=== PATIENT | male | born 1990 | race Hispanic/Latino ===

== ENCOUNTER 2019-03-07 09:02 | Emergency (ER) | payer OTHER ==
[2019-03-07 09:16] VITALS: BP 158/93
[2019-03-07] MEDS ORDERED: ASPIRIN PO ONE (09:16)
[2019-03-07 09:32] LABS: Basophils # (Auto) 0.1 K/mm3 (0.0-0.1); Basophils % (Auto) 0.7 % (0.0-1.8); Eosinophils % (Auto) 0.2 % (0.0-4.3); Hematocrit 45.1 % (35.5-45.6); Hemoglobin 14.9 gm/dl (11.8-15.2); Lymphocytes # (Auto) 3.9 K/mm3 (1.2-5.4); Lymphocytes % (Auto) 33.1 % (13.4-35.0); Mean Corpuscular HGB Conc 33 % (32-34); Mean Corpuscular Volume 85 fl (84-94); Monocytes # (Auto) 0.8 K/mm3 (0.0-0.8); Monocytes % (Auto) 6.8 % (0.0-7.3); Platelet Count 324 K/mm3 (140-440); Red Blood Count 5.32 M/mm3 (3.65-5.03); Red Cell Distribution Width 14.8 % (13.2-15.2)
[2019-03-07] MEDS ORDERED: ZOFRAN IV ONE (09:42)
[2019-03-07] MEDS ORDERED: PEPCID IV ONE (09:42)
[2019-03-07] MEDS ORDERED: NACL 0.9% 1000 ML 1,000 ML IV ONE (09:42)
[2019-03-07 09:53] LABS: BUN/Creatinine Ratio 13; Blood Urea Nitrogen 10 mg/dL (9-20); Calcium 9.5 mg/dL (8.4-10.2); Hemolysis Index 3
[2019-03-07] MEDS ORDERED: ALUM-MAG HYDROX-SIMETH 200-200-20MG/5ML PO ONE (11:01)
[2019-03-07] MEDS ORDERED: LEVSIN SL SL ONE (11:01)
[2019-03-07] MEDS ORDERED: MORPHINE IV ONE (11:01)
[2019-03-07] MEDS ORDERED: PROTONIX IV ONE (11:01)
--- NOTE | 2019-03-07 12:25 | Emergency Department Report ---
ED Abdominal Pain HPI - General Chief Complaint: Chest Pain Stated Complaint: CHEST PAIN/NAUSEA Time Seen by Provider: 03/07/19 09:38 Source: patient Mode of arrival: Ambulatory Limitations: No Limitations - History of Present Illness Initial Comments: Patient is a 29-year-old gentleman who [place] town and states he has no medications for his gait gastritis. Patient states that [id number] medications that typically do not work. Patient states he has been having epigastric pain with nausea and vomiting for the last week. He denies fevers chills cough cold congestion sore throat. Patient states symptoms are similar to symptoms he is having the past. Patient also has had some mild diarrhea. Location: epigastric Radiation: none Severity: moderate Severity scale (0 -10): 6 Quality: burning Improves With: nothing Worsens With: eating - Related Data Previous Rx's Medication Instructions Recorded Last Taken Type Ondansetron [Zofran Odt] 4 mg PO Q8HR #10 tab.rapdis 03/07/19 Unknown Rx Pantoprazole [Protonix] 40 mg PO QDAY #30 tablet 03/07/19 Unknown Rx traMADol [Ultram] 50 mg PO Q6HR PRN #6 tablet 03/07/19 Unknown Rx Allergies Allergy/AdvReac Type Severity Reaction Status Date / Time No Known Allergies Allergy Verified 03/07/19 09:41 ED Review of Systems ROS: Stated complaint: CHEST PAIN/NAUSEA Other details as noted in HPI Comment: All other systems reviewed and negative ED Past Medical Hx - Past Medical History Additional medical history: GASTRITIS - Surgical History Past Surgical History?: No - Social History Smoking Status: Never Smoker - Medications Home Medications: Home Medications Medication Instructions Recorded Confirmed Last Taken Type Ondansetron [Zofran Odt] 4 mg PO Q8HR #10 tab.rapdis 03/07/19 Unknown Rx Pantoprazole [Protonix] 40 mg PO QDAY #30 tablet 03/07/19 Unknown Rx traMADol [Ultram] 50 mg PO Q6HR PRN #6 tablet 03/07/19 Unknown Rx ED Physical Exam - General Limitations: No Limitations General appearance: alert, in no apparent distress - Head Head exam: Present: atraumatic, normocephalic - Eye Eye exam: Present: normal appearance - ENT ENT exam: Present: mucous membranes moist - Neck Neck exam: Present: normal inspection - Respiratory Respiratory exam: Present: normal lung sounds bilaterally. Absent: respiratory distress, wheezes, rales, rhonchi - Cardiovascular Cardiovascular Exam: Present: regular rate, normal rhythm. Absent: systolic murmur, diastolic murmur, rubs, gallop - GI/Abdominal GI/Abdominal exam: Present: soft, tenderness (epigastric), normal bowel sounds. Absent: distended, guarding, rebound, rigid - Rectal Rectal exam: Present: deferred - Extremities Exam Extremities exam: Present: normal inspection - Back Exam Back exam: Present: normal inspection - Neurological Exam Neurological exam: Present: alert, oriented X3 - Psychiatric Psychiatric exam: Present: normal affect, normal mood - Skin Skin exam: Present: warm, dry, intact, normal color. Absent: rash ED Course Vital Signs 03/07/19 09:14 Temperature 98.4 F Pulse Rate 57 L Respiratory 16 Rate Blood Pressure 158/93 O2 Sat by Pulse 100 Oximetry ED Medical Decision Making - Lab Data Result diagrams: 03/07/19 09:18 03/07/19 09:18 - Medical Decision Making Dishes R studies are within normal limits. Patient was hydrated given medications for symptomatic relief be discharged home. Critical care attestation.: If time is entered above; I have spent that time in minutes in the direct care of this critically ill patient, excluding procedure time. ED Disposition Clinical Impression: Gastritis Qualifiers: Gastritis type: unspecified gastritis Chronicity: acute Gastritis bleeding: without bleeding Qualified Code(s): K29.00 - Acute gastritis without bleeding Disposition: DC-01 TO HOME OR SELFCARE Is pt being admited?: No Does the pt Need Aspirin: No Condition: Stable Instructions: Gastritis (ED) Referrals: HILARIO MORENO MD [Referring] - 3-5 Days [facility] [Provider Group] - 3-5 Days Time of Disposition: 12:25
== END 2019-03-07 12:39 | disposition home or self-care (01) ==
LOC: EDBD → ED 09:02
DX: K29.00 Acute gastritis without bleeding (principal); R11.2 Nausea with vomiting, unspecified; Z79.899 Other long term (current) drug therapy
CPT/HCPCS: 36415; 80048; 84484; 85025; 93005; 93010; 96361; 96374; 96375; 99283; C9113; J2270; J2405; J7030